=== PATIENT | male | born 1970 | race Caucasian/White ===

== ENCOUNTER 2017-02-09 20:12 | Emergency (ER) | payer SELFPAY ==
[2017-02-09 20:18] VITALS: TEMP 97.1
--- NOTE | 2017-02-09 20:36 | ED PDOC ---
HPI: Psych/Substance Abuse Time Seen by Provider: 02/09/17 20:20 Chief Complaint (Nursing): Alcohol Ingestion Chief Complaint (Provider): etoh History Per: Patient, EMS History/Exam Limitations: intoxication Additional History Per: Patient, EMS Additional Complaint(s): 46 y/o male brought in by EMS with PD for acute alcohol intoxication. Patient agitated, tearful; states he drank because his sister recently . Patient denies suicidal/homicidal ideations, acute physical complaints. Past Medical History Reviewed: Historical Data, Nursing Documentation, Vital Signs Vital Signs: Last Vital Signs Temp 97.1 F L 02/09/17 20:13 Pulse 99 H 02/09/17 20:13 Resp 20 02/09/17 20:13 BP 121/87 02/09/17 20:13 Pulse Ox 100 02/09/17 20:13 - Medical History PMH: No Chronic Diseases - Surgical History Surgical History: Hernia Repair, Tonsillectomy - Family History Family History: States: No Known Family Hx - Living Arrangements Living Arrangements: Alone - Home Medications Home Medications: Ambulatory Orders Medication Instructions Recorded Naproxen 500 mg PO BID PRN #30 tab 09/23/14 - Allergies Allergies/Adverse Reactions: Allergies Allergy/AdvReac Type Severity Reaction Status Date / Time No Known Allergies Allergy Verified 02/09/17 20:17 Review of Systems ROS Statement: Except As Marked, All Systems Reviewed And Found Negative Physical Exam - Reviewed Nursing Documentation Reviewed: Yes Vital Signs Reviewed: Yes - Physical Exam Appears: Positive for: Well, Non-toxic, In Acute Distress (agitated, tearful) Head Exam: Positive for: ATRAUMATIC, NORMAL INSPECTION, NORMOCEPHALIC Skin: Positive for: Normal Color Eye Exam: Positive for: Normal appearance ENT: Positive for: Normal ENT Inspection Cardiovascular/Chest: Positive for: Regular Rate, Rhythm Respiratory: Positive for: Normal Breath Sounds Gastrointestinal/Abdominal: Positive for: Normal Exam Back: Positive for: Normal Inspection Extremity: Positive for: Normal ROM Neurologic/Psych: Positive for: Alert, Oriented - Laboratory Results Result Diagrams: 02/09/17 20:40 02/09/17 20:40 - ECG O2 Sat by Pulse Oximetry: 100 - Progress ED Course And Treament: accucheck, labs, urine 20:35 Patient banging on graham, spitting, coming out of exam room with unsteady gait. Patient unwilling to comply with alternative measures offered; restrained and medicated for safety 22:00 Patient sleeping; no distress 23:30 Patient sleeping; no distress 02/10/17 00:00 Patient sleeping; no distress 1:30 Patient sleeping; no distress 3:00 Patient awake, alert, oriented x3. Ambulating steady gait. Patient denies sucicidal/homicidal ideations. States he is feeling better because he sobered up and would like to be discharged. Return precautions given. Disposition - Clinical Impression Clinical Impression: Alcohol abuse - Patient ED Disposition Is Patient to be Admitted: No Counseled Patient/Family Regarding: Studies Performed, Diagnosis, Need For Followup - Disposition Disposition: Routine/Home Disposition Time: 02:59 Condition: STABLE Instructions: Abuse of Alcohol (ED)
[2017-02-09 21:02] LABS: BASO % 0.6 % (0.0-2.0); EOS # 0.2 K/uL (0.0-0.7); EOS % 2.2 % (0.0-4.0); HEMATOCRIT 50.9 % (35.0-51.0); LYMPH # 5.6 K/uL (1.0-4.3); LYMPH % 65.2 % (20.0-40.0); MEAN CELL VOLUME 93.1 fl (80.0-94.0); MEAN CORPUSCULAR HEMOGLOBIN 29.8 pg (27.0-31.0); MEAN CORPUSCULAR HGB CONC 32.1 g/dL (33.0-37.0); MEAN PLATELET VOLUME 7.9 fl (7.2-11.7); MONO # 0.5 K/uL (0.0-0.8); MONO % 5.4 % (0.0-10.0); NEUT # 2.3 K/uL (1.8-7.0); NEUT % 26.6 % (50.0-75.0); RED CELL DISTRIBUTION WIDTH 15.2 % (11.5-14.5); WHITE BLOOD COUNT 8.6 K/uL (4.8-10.8)
[2017-02-09 21:34] LABS: ALB/GLOB RATIO 1.4 (1.0-2.1); ALCOHOL SERUM 313 mg/dl (0-10); ALKALINE PHOSPHATASE 80 U/L (38-126); ALT/SGPT 39 U/L (21-72); AST/SGOT 27 U/L (17-59); BILIRUBIN,TOTAL 0.2 mg/dl (0.2-1.3); BLOOD UREA NITROGEN 10 mg/dl (9-20); CALCIUM 9.4 mg/dL (8.4-10.2); CARBON DIOXIDE 27 mmol/L (22-30); CHLORIDE 107 mmol/L (98-107); GFR AFRICAN-AMERICAN > 60; GLUCOSE,RANDOM 99 mg/dL (75-110); POTASSIUM 3.6 MMOL/L (3.6-5.0); SODIUM 149 mmol/l (132-148); TOTAL PROTEIN 8.7 G/DL (6.3-8.2)
[2017-02-10 02:53] VITALS: RESP 18
[2017-02-10 02:54] VITALS: BP 102/56; PULSE 75
[2017-02-10 03:00] VITALS: O2SAT 100
== END 2017-02-10 03:13 | disposition home or self-care (01) ==
LOC: H.ER 20:12
DX: F10.129 Alcohol abuse with intoxication, unspecified (principal)
CPT/HCPCS: 80053; 82948; 85025; 96372; 99285; G0480; J1630; J2060